=== PATIENT | male | born 1960 | race Caucasian/White ===

== ENCOUNTER 2017-08-01 12:10 | Emergency (ER) | payer OTHER ==
[~2017-08-01] VITALS: Ht 167.6 cm; Wt 81.0 kg
[~2017-08-01 12:10] MED LIST: DULO60 PO; SYNT88TA PO
[2017-08-01 12:13] VITALS: BP 141/96; PULSE 94; RESP 20; TEMP 98.1; O2SAT 98
[2017-08-01] MEDS ORDERED: SYNT25TA PO (12:21)
[2017-08-01] MEDS ORDERED: DULO1CAP PO (12:21)
[2017-08-01] MEDS ORDERED: ACETAMINOPHEN/HYDROcodone 325 MG/5 MG TAB PO ONE (12:30)
[2017-08-01] MEDS ORDERED: LIDOCAINE HCL 1% 50 ML VIAL INFIL ONE (12:30)
--- NOTE | 2017-08-01 12:35 | PD ---
HPI Chief Complaint: Laceration/Skin Injury Time Seen by Provider: 12:21 Travel History International Travel<30 days: No Contact w/Intl Traveler<30days: No Traveled to known affect area: No History of Present Illness HPI 56-year-old male presents to the emergency department for left index finger pain after spraying himself with a salt washer harvesting station just prior to arrival. States that he only had tap water in the salt washer harvesting station. States that he is able to move his finger but it feels "numb" near the tip of the finger. Pain is achy, 7/10, has not taken anything for the pain. He was able to control the bleeding. He is right handed. Denies chronic medical issues such as cardiac, pulmonary, kidney. He does have a history of depression. Denies fever, chills , chest pain, shortness of breath, back pain, abdominal pain. He is here with his today PFSH Past Medical History Depression: Yes Heart Rhythm Problems: No Cancer: No Cardiovascular Problems: No High Cholesterol: Yes Chest Pain: No Congestive Heart Failure: No Diabetes: No Endocrine: No Genitourinary: No Hepatitis: No Hiatal Hernia: No Immune Disorder: No Musculoskeletal: No Neurologic: Yes (SHINGLES RIGHT HAND 4 YEARS AGO) Psychiatric: Yes (DEPRESSION, ANXIETY) Reproductive: No Respiratory: No Thyroid Disease: Yes Past Surgical History Abdominal Surgery: Yes AICD: No Appendectomy: Yes Ear Surgery: No Eye Surgery: No Genitourinary Surgery: No Gynecologic Surgery: No Joint Replacement: No Oral Surgery: No Pacemaker: No Other Surgery: Yes Social History Alcohol Use: Yes (socially) Tobacco Use: No Substance Use: No Allergies-Medications (Allergen,Severity, Reaction): Coded Allergies: No Known Allergies (Verified , 08/01/17) Reported Meds & Prescriptions Reported Meds & Active Scripts Active Bactrim DS (Sulfamethoxazole-Trimethoprim) 800-160 Mg Tab 1 Tab PO BID Keflex (Cephalexin) 500 Mg Cap 500 Mg PO Q8H 10 Days Reported Synthroid (Levothyroxine Sodium) 25 Mcg Tab Unknown Dose PO DAILY Duloxetine DR (Duloxetine HCl) 20 Mg Capdr Unknown Dose PO DAILY Review of Systems Except as stated in HPI: all other systems reviewed are Neg Physical Exam Narrative GENERAL: Well-nourished, well-developed patient. SKIN: Focused skin assessment warm/dry. HEAD: Normocephalic. EYES: No scleral icterus. No injection or drainage. NECK: Supple, trachea midline. No JVD or lymphadenopathy. CARDIOVASCULAR: Regular rate and rhythm without murmurs, gallops, or rubs. RESPIRATORY: Breath sounds equal bilaterally. No accessory muscle use. GASTROINTESTINAL: Abdomen soft, non-tender, nondistended. MUSCULOSKELETAL: No cyanosis, or edema. Left index finger middle phalange: Palmar aspect with a 3 cm laceration in a Z- shaped, not involving the nailbed. Neurovascularly intact. Blanching distal to the DIP with minimal cap refill. Cep refill and sensation normal elsewhere BACK: Nontender without obvious deformity. No CVA tenderness. Data Data Last Documented VS Vital Signs Date Time Temp Pulse Resp B/P (MAP) Pulse Ox O2 Delivery O2 Flow Rate FiO2 08/01/17 12:13 98.1 94 20 141/96 (111) 98 Orders Orders Lidocaine 1% Inj (50 Ml) (Xylocaine 1% I (08/01/17 12:30) Acetamin-Hydrocod 325-5 Mg ([place] 5-325 (08/01/17 12:30) Finger ([id number]) (08/01/17 ) Ed Discharge Order (08/01/17 15:01) MDM Medical Decision Making Medical Screen Exam Complete: Yes Emergency Medical Condition: Yes Differential Diagnosis Left index finger laceration versus avulsion versus puncture Narrative Course 56-year-old male presents to the emergency department with a laceration to his left index finger after a salt washer harvesting station accident. He said he is able to move the finger but does have a significant amount pain. Hydrocodone 5-325mg administered for pain relief. Performed a digital block of left index finger with 2cc lidocaine 1% without epi , began debriding the finger when I noticed the finger was becoming more blanched. Pt has 2 point discrimination and cap refill, however, the blanching distal portion of finger was cool to the touch. Pt able to flex without extreme pain. Imaging: Fairly extensive air consistent with an ejection injury Discussed case with my attending. Discussed with radiation officer hand surgeon for further recommendations. Pt and were reliable and understand the importance of following up or returning to the ED. Discharged with pain medication and antibiotics. He advised pt followup with him Thursday in his office and tell pt to return if the pain increased or started developing compartment syndrome. Diagnosis Primary Impression: Finger laceration Qualified Codes: S61.211A - Laceration without foreign body of left index finger without damage to nail, initial encounter Additional Impression: High-pressure injection injury of finger Qualified Codes: S69.82XA - Other specified injuries of left wrist, hand and finger(s), initial encounter; W29.8XXA - Contact with other powered hand tools and household machinery, initial encounter Referrals: Sven Figueroa MD Primary Care Physician Additional Instructions: Keep area clean and dry Keep site elevated Follow-up with the hand doctor Thursday. This referral is absolutely necessary. If he develops increased swelling, pain or crease sensation return to the emergency department immediately. Scripts Sulfamethoxazole-Trimethoprim (Bactrim DS) 800-160 Mg Tab 1 TAB PO BID for Infection, #20 TAB 0 Refills Prov: Cindy Olivares MD 08/01/17 Cephalexin (Keflex) 500 Mg Cap 500 MG PO Q8H for Infection for 10 Days, #30 CAP 0 Refills Prov: Cindy Olivares MD 08/01/17 Disposition: 01 DISCHARGE HOME Condition: Stable Ashley Ybarra Aug 01, 2017 12:35
--- NOTE | 2017-08-01 14:20 | RADRPT ---
EXAM DATE/TIME: 08/01/2017 13:37 [facility] COMPARISON: No previous studies available for comparison. INDICATIONS : Left 2nd digit pain when patient's finger came into contact with water stream from cullet crusher and washer MEDICAL HISTORY : None. SURGICAL HISTORY : None. ENCOUNTER: Initial ACUITY: 1 day PAIN SCORE: 10/10 LOCATION: Left 2nd digit FINDINGS: There is soft tissue swelling at the second digit. There is air throughout the soft tissues of the se cond digit and extending into the hand adjacent to the second metacarpal. A fracture is not seen. No foreign body is seen. CONCLUSION: Fairly extensive air within the soft tissues of the second digit. Reid Enamorado MD on August 01, 2017 at 14:17 Board Certified Radiologist. This report was verified electronically.
[2017-08-01] MEDS ORDERED: BACT800T5 PO (15:00)
[2017-08-01] MEDS ORDERED: CEPH-460 PO (15:00)
== END 2017-08-01 15:23 | disposition home or self-care (01) ==
LOC: PHEFT 12:10
DX: S61.211A Laceration without foreign body of left index finger without damage to nail, initial encounter (principal); S69.82XA Other specified injuries of left wrist, hand and finger(s), initial encounter; E07.9 Disorder of thyroid, unspecified; E78.00 Pure hypercholesterolemia, unspecified; Z86.59 Personal history of other mental and behavioral disorders; Z86.69 Personal history of other diseases of the nervous system and sense organs; W29.8XXA Contact with other powered hand tools and household machinery, initial encounter
CPT/HCPCS: 12002; 73140